=== PATIENT | female | born 1975 | race Caucasian/White ===

== ENCOUNTER 2017-05-26 09:24 | Emergency (ER) | payer SELFPAY ==
[~2017-05-26] VITALS: Ht 147.3 cm; Wt 99.3 kg
[2017-05-26 09:33] VITALS: Ht 147.3 cm; Wt 99.3 kg
[2017-05-26 10:38] LABS: BASOPHIL % 0.1 % (0-2); PLATELET COUNT 290 x10^3mcL (130-400); RED CELL DISTRIBUTION WIDTH 13.3 % (11.5-14.5)
[2017-05-26 10:48] LABS: CALCIUM 8.8 mg/dL (8.5-10.1); CARBON DIOXIDE 29.8 mmol/L (21-32); CHLORIDE SERUM 104 mmol/L (98-107); CREATININE SERUM 0.6 mg/dL (0.6-1.0); GFR1 > 60 mL/min; GLUCOSE SERUM 99 mg/dL (74-106); POTASSIUM SERUM 3.8 mmol/L (3.5-5.1); SODIUM SERUM 143 mmol/L (136-145)
[2017-05-26 11:57] VITALS: BP 125/75
== END 2017-05-26 11:57 | disposition home or self-care (01) ==
LOC: ED 09:24
PROVIDERS: Emergency Medicine
DX: B69.0 Cysticercosis of central nervous system (principal); R51 Headache; R42 Dizziness and giddiness
CPT/HCPCS: 36415; J1885; J8597; Q0162